=== PATIENT | female | born 1955 | race Caucasian/White ===

== ENCOUNTER 2022-09-11 18:47 | Inpatient (IN) ==
[2022-09-11 19:21] LABS: Basophils # (auto) 0.05 K/uL (0-0.2); Basophils % (auto) 0.4 %; Eosinophils # (auto) 0.19 K/uL (0-0.50); Eosinophils % (auto) 1.5 %; Hematocrit (blood only) 34.8 % (34.1-44.9); Hemoglobin 12.4 g/dl (12.0-16.0); Immature Granulocytes # (auto) 0.07 K/uL (0.00-0.02); Immature Granulocytes % (auto) 0.6 %; Lymphocytes # (auto) 2.32 K/uL (1.2-3.4); Lymphocytes % (auto) 18.5 %; Mean Corpuscular Hemoglobin 31.2 pg (25.0-34.0); Mean Corpuscular Hgb Conc 35.6 g/dL (32.0-36.0); Mean Corpuscular Volume 87.7 fL (80.0-100.0); Mean Platelet Volume 10.3 fL (9.4-12.3); Monocytes # (auto) 1.43 K/uL (0.24-0.82); Monocytes % (auto) 11.4 %; Neutrophils # (auto) 8.49 K/uL (1.4-6.5); Neutrophils % (auto) 67.6 %; Platelet Count 235 K/uL (130-400); RDW Coefficient of Variation 12.2 % (11.5-14.5); RDW Standard Deviation 39.6 fL (36.4-46.3); Red Blood Count 3.97 M/uL (3.93-5.22); White Blood Count 12.55 K/ul (4.8-10.8)
[2022-09-11 19:26] LABS: Appearance Urine Cloudy (Clear); Bacteria Urine Automated Negative (Negative); Bilirubin Urine Negative (Negative); Blood Urine Trace (Negative); Color Urine Yellow; Glucose Urine UA Negative (Negative); Ketones Urine Negative (Negative); Leukocyte Esterase Urine Negative (Negative); Nitrite Urine Negative (Negative); Protein Urine Negative (Negative); RBC Urine Automated 0-4 /hpf (0-4); Specific Gravity Urine 1.003 (1.000-1.030); Urobilinogen Urine Negative (Negative)
--- NOTE | 2022-09-11 19:50 | XRay Report ---
XR chest 1V portable CLINICAL HISTORY: SOB TECHNIQUE: Single frontal radiograph of the chest was obtained. Comparison: None available at the time of this dictation. FINDINGS: No lines and tubes are seen. The cardiomediastinal silhouette is normal. The lungs are clear. No evid ence of pleural effusion or pneumothorax. IMPRESSION: No acute abnormalities and in particular no evidence of pneumonia. ACT 112: Negative or not required by law. Electronically signed by: Demar Fuentes M.D. 09/11/2022 7:49 PM
[2022-09-11 20:17] LABS: Troponin I High Sensitivity 4.4 pg/ml (0-14)
[2022-09-11 20:31] LABS: Alanine Aminotransferase 17 U/L (7-52); Albumin Globulin Ratio 1.3 (0.9-2); Albumin Level 3.9 gm/dl (3.4-5.0); Alkaline Phosphatase 74 U/L (34-104); Anion Gap 9 (3-11); BUN Creatinine Ratio 10.3 (10-20); Bilirubin,Total 0.7 mg/dl (0.2-1.0); Blood Urea Nitrogen 6 mg/dl (6-23); Calcium 9.1 mg/dl (8.5-10.1); Carbon Dioxide 25 mmol/L (21-32); Chloride 86 mmol/L (98-107); Creatinine Clr Calc Pharmacy 90.5 ml/min; Est GFR (African American) 112.1 ml/min; Est GFR (Non-African American) 96.7 ml/min; Glucose 104 mg/dl (70-99(Fasting)); Magnesium 1.9 mg/dl (1.7-2.4); Sodium 120 mmol/L (136-145); Total Protein 6.9 gm/dl (6.0-8.3)
[2022-09-11 20:46] LABS: Influenza A virus by PCR Negative (Neg); Influenza B virus by PCR Negative (Neg); RSV by PCR Negative (Neg); SARS CoV2 RNA(COVID-19) Ceph NEGATIVE (Negative)
[2022-09-11] MEDS ORDERED: SODIUM CHLORIDE 0.9% 1000ML 1,000 ML IV ONE (21:17)
[2022-09-11] MEDS ORDERED: cefTRIAXone SODIUM 2,000 MG/70 ML BAG IV STA (21:17)
--- NOTE | 2022-09-11 21:28 | Emergency Department Note ---
History of Present Illness General Chief complaint: Cough Stated complaint: COUGH, DIARRHEA Time Seen by Provider: 09/11/22 20:53 Source: patient and family ( who is at the bedside) Mode of arrival: ambulatory Limitations: no limitations History of Present Illness This patient is a 67-year-old female who says she has had a cough and illness for about 12 days she feels short of breath she feels like there is a lot of phlegm stuck in her throat. She is able to swallow okay no vomiting she been drinking a lot of fluid her cough is dry but it has been intermittently productive with yellow phlegm. Her sister is also sick with pneumonia and is currently hospitalized in [place]. She does have a headache with coughing she does have a little bit of a laryngitis but no sore throat. She does not have chest pain except when she coughs no abdominal pain lower extremity pain or swelling. No palpitations or heart rate except for 1 episode day or so ago Home Medications Medication Instructions Recorded Confirmed Type atenolol 50 mg tablet 50 mg PO DAILY 08/20/18 11/14/18 History atenolol 50 mg tablet 50 mg PO DAILY PRN HEART FLUTTERING 08/20/18 11/14/18 History cholecalciferol (vitamin D3) 50 4,000 unit PO DAILY 08/20/18 11/14/18 History mcg (2,000 unit) tablet (Vitamin D3) docusate sodium 100 mg capsule 100 mg PO DAILY 08/20/18 11/14/18 History atorvastatin 10 mg tablet 10 mg PO DAILY 09/11/22 09/11/22 History Allergies Allergy/AdvReac Type Severity Reaction Status Date / Time Sulfa (Sulfonamide Allergy Intermediate Hives Verified 11/14/18 05:01 Antibiotics) Past Med/Surg History Medical History (Updated 09/11/22 @ 23:39 by Thor Kwong MD) Atrial tachycardia Hyperlipidemia Surgical History H/O bilateral oophorectomy H/O: hysterectomy Family History Other No significant family history Social History Smoking Status: Current some day smoker Cigarettes Per Day: 10; Hx Alcohol Use: No Hx Substance Use: No Preferred Language: Faroese 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 Beliefs That Will Affect Care: None Current Living Situation: Spouse Feels Safe at Home: Yes Assistive Devices: None Review of Systems A total of 10 systems reviewed and were otherwise negative Physical Exam Vital Signs Vital Signs - 24 hr 09/11/22 18:49 Temperature 36.6 C Temperature Source Temporal Artery Scan Pulse Rate 77 Pulse Rhythm Regular Respiratory Rate 16 Respiratory Effort / Characteristics Non-Labored Spontaneous Respiratory Depth Normal Blood Pressure 170/84 H Blood Pressure Mean 112 Pulse Oximetry 95 Oxygen Delivery Method Room Air Sepsis Recent Fever Within 48 Hours No Sepsis New/Unexplained Change in Mental Status No Sepsis Action Taken by Nursing No Action Required General: Well developed well nourished older female who is coughing frequently with a dry hacking cough in no acute distress, breathing comfortably on room air. Normal speech, slight laryngitis but speaking and swallowing without difficulty no stridor HEENT: Normal cephalic atraumatic. Pupils are equal round and reactive to light. Extraocular movements are intact. Oropharynx is pink with moist mucous membranes. No swelling of the mouth lips or tongue. Neck: Supple with a midline trachea. No meningeal signs or stiffness, no JVD or bruits. No Stridor. Chest: Clear to auscultation bilaterally. No wheezes or rhonchi. No increased work of breathing. Heart: Regular rate and rhythm without murmurs or gallops. Abdomen: Soft nontender, nondistended without rebound guarding or rigidity. Extremities: No cyanosis clubbing or edema. No calf tenderness or assymetry Spine/Back. Non tender to palpation. No CVA tenderness Skin: Good turgor without rashes. Neurologic exam: Cranial nerves two through 12 are intact. Motor and sensation are intact and symmetrical throughout. Course Administered Medications Azithromycin 500 mg/ Dextrose 255 mls @ 125 mls/hr IV 2215 ONE Stop: 09/12/22 00:17 Last Admin: 09/11/22 23:36 Dose: 125 mls/hr Documented By: KIANA Discontinued Medications Ceftriaxone Sodium (Rocephin) 2,000 mg in 70 mls @ 140 mls/hr IV NOW STA Stop: 09/11/22 21:46 Last Infusion: 09/11/22 23:28 Dose: 0 mls/hr Documented By: Admin: 09/11/22 22:41 Dose: 140 mls/hr Documented By: LAKEISHA Sodium Chloride (Nss 1000ml) 1,000 mls @ 999 mls/hr IV .Q1H1M ONE Stop: 09/11/22 22:17 Last Infusion: 09/11/22 23:28 Dose: 0 mls/hr Documented By: Admin: 09/11/22 21:51 Dose: 999 mls/hr Documented By: LAKEISHA Medical Decision Making Differential Diagnosis Pneumonia, COVID, sepsis, electrolyte or metabolic abnormality, bronchitis, cardiac disease, pulmonary disease, pneumothorax Medical Records Attestation: I reviewed the patient's medical records. Home Medications Current Medication List: was personally reviewed by me Laboratory Data Attestation: I reviewed the patient's lab results. Result diagrams: 09/11/22 19:03 09/11/22 21:57 Lab Results 09/11/22 09/11/22 09/11/22 Range/Units 19:03 19:03 19:03 WBC 12.55 H (4.8-10.8) K/ul RBC 3.97 (3.93-5.22) M/uL Hgb 12.4 (12.0-16.0) g/dl Hct 34.8 (34.1-44.9) % MCV 87.7 (80.0-100.0) fL MCH 31.2 (25.0-34.0) pg MCHC 35.6 (32.0-36.0) g/dL RDW Std Deviation 39.6 (36.4-46.3) fL RDW Coeff of Erika 12.2 (11.5-14.5) % Plt Count 235 (130-400) K/uL MPV 10.3 (9.4-12.3) fL Immature Gran % (Auto) 0.6 % Neut % (Auto) 67.6 % Lymph % (Auto) 18.5 % [place] % (Auto) 11.4 % Eos % (Auto) 1.5 % Baso % (Auto) 0.4 % Neut # (Auto) 8.49 H (1.4-6.5) K/uL Lymph # (Auto) 2.32 (1.2-3.4) K/uL [place] # (Auto) 1.43 H (0.24-0.82) K/uL Eos # (Auto) 0.19 (0-0.50) K/uL Baso # (Auto) 0.05 (0-0.2) K/uL Immature Gran # (Auto) 0.07 H (0.00-0.02) K/uL PT Cancelled INR Cancelled APTT Cancelled PTT Ratio Cancelled Sodium 120 L (136-145) mmol/L Potassium TNP Chloride 86 L (98-107) mmol/L Carbon Dioxide 25 (21-32) mmol/L Anion Gap 9 (3-11) BUN 6 (6-23) mg/dl Creatinine 0.58 L (0.6-1.2) mg/dl Est Cr Clr Drug Dosing 90.5 ml/min Est GFR ( Amer) 112.1 ml/min Est GFR (Non-Af Amer) 96.7 ml/min BUN/Creatinine Ratio 10.3 (10-20) Glucose 104 H (70-99(Fasting)) mg/dl Calcium 9.1 (8.5-10.1) mg/dl Magnesium 1.9 (1.7-2.4) mg/dl Total Bilirubin 0.7 (0.2-1.0) mg/dl AST TNP ALT 17 (7-52) U/L Alkaline Phosphatase 74 (34-104) U/L Troponin I High Sens 4.4 (0-14) pg/ml Total Protein 6.9 (6.0-8.3) gm/dl Albumin 3.9 (3.4-5.0) gm/dl Globulin 3.0 (2.5-4.0) gm/dl Albumin/Globulin Ratio 1.3 (0.9-2) Urine Color Urine Appearance (Clear) Urine pH (4.5-7.5) Ur Specific [place] (1.000-1.030) Urine Protein (Negative) Urine Glucose (UA) (Negative) Urine Ketones (Negative) Urine Blood (Negative) Urine Nitrite (Negative) Urine Bilirubin (Negative) Urine Urobilinogen (Negative) Ur Leukocyte Esterase (Negative) Urine WBC (Auto) (0-5) /hpf Urine RBC (Auto) (0-4) /hpf U Hyaline Cast (Auto) (0-5) /lpf U Epithel Cells (Auto) (0-5) /lpf Urine Bacteria (Auto) (Negative) SARS-CoV-2 (PCR) (Negative) Influenza Type A (PCR) (Neg) Influenza Type B (PCR) (Neg) RSV (RT-PCR) (Neg) 09/11/22 09/11/22 09/11/22 Range/Units 19:03 19:03 21:57 WBC (4.8-10.8) K/ul RBC (3.93-5.22) M/uL Hgb (12.0-16.0) g/dl Hct (34.1-44.9) % MCV (80.0-100.0) fL MCH (25.0-34.0) pg MCHC (32.0-36.0) g/dL RDW Std Deviation (36.4-46.3) fL RDW Coeff of Erika (11.5-14.5) % Plt Count (130-400) K/uL MPV (9.4-12.3) fL Immature Gran % (Auto) % Neut % (Auto) % Lymph % (Auto) % [place] % (Auto) % Eos % (Auto) % Baso % (Auto) % Neut # (Auto) (1.4-6.5) K/uL Lymph # (Auto) (1.2-3.4) K/uL [place] # (Auto) (0.24-0.82) K/uL Eos # (Auto) (0-0.50) K/uL Baso # (Auto) (0-0.2) K/uL Immature Gran # (Auto) (0.00-0.02) K/uL PT INR APTT PTT Ratio Sodium (136-145) mmol/L Potassium Cancelled Chloride (98-107) mmol/L Carbon Dioxide (21-32) mmol/L Anion Gap (3-11) BUN (6-23) mg/dl Creatinine (0.6-1.2) mg/dl Est Cr Clr Drug Dosing ml/min Est GFR ( Amer) ml/min Est GFR (Non-Af Amer) ml/min BUN/Creatinine Ratio (10-20) Glucose (70-99(Fasting)) mg/dl Calcium (8.5-10.1) mg/dl Magnesium (1.7-2.4) mg/dl Total Bilirubin (0.2-1.0) mg/dl AST Cancelled ALT (7-52) U/L Alkaline Phosphatase (34-104) U/L Troponin I High Sens (0-14) pg/ml Total Protein (6.0-8.3) gm/dl Albumin (3.4-5.0) gm/dl Globulin (2.5-4.0) gm/dl Albumin/Globulin Ratio (0.9-2) Urine Color Yellow Urine Appearance Cloudy A (Clear) Urine pH 6.0 (4.5-7.5) Ur Specific [place] 1.003 (1.000-1.030) Urine Protein Negative (Negative) Urine Glucose (UA) Negative (Negative) Urine Ketones Negative (Negative) Urine Blood Trace H (Negative) Urine Nitrite Negative (Negative) Urine Bilirubin Negative (Negative) Urine Urobilinogen Negative (Negative) Ur Leukocyte Esterase Negative (Negative) Urine WBC (Auto) 1-5 (0-5) /hpf Urine RBC (Auto) 0-4 (0-4) /hpf U Hyaline Cast (Auto) 1-5 (0-5) /lpf U Epithel Cells (Auto) 10-20 H (0-5) /lpf Urine Bacteria (Auto) Negative (Negative) SARS-CoV-2 (PCR) NEGATIVE (Negative) Influenza Type A (PCR) Negative (Neg) Influenza Type B (PCR) Negative (Neg) RSV (RT-PCR) Negative (Neg) 09/11/22 09/11/22 Range/Units 21:57 22:37 WBC (4.8-10.8) K/ul RBC (3.93-5.22) M/uL Hgb (12.0-16.0) g/dl Hct (34.1-44.9) % MCV (80.0-100.0) fL MCH (25.0-34.0) pg MCHC (32.0-36.0) g/dL RDW Std Deviation (36.4-46.3) fL RDW Coeff of Erika (11.5-14.5) % Plt Count (130-400) K/uL MPV (9.4-12.3) fL Immature Gran % (Auto) % Neut % (Auto) % Lymph % (Auto) % [place] % (Auto) % Eos % (Auto) % Baso % (Auto) % Neut # (Auto) (1.4-6.5) K/uL Lymph # (Auto) (1.2-3.4) K/uL [place] # (Auto) (0.24-0.82) K/uL Eos # (Auto) (0-0.50) K/uL Baso # (Auto) (0-0.2) K/uL Immature Gran # (Auto) (0.00-0.02) K/uL PT 10.8 INR 1.0 APTT 28.8 PTT Ratio 1.0 Sodium 123 L (136-145) mmol/L Potassium 4.1 Chloride 89 L (98-107) mmol/L Carbon Dioxide 25 (21-32) mmol/L Anion Gap 9 (3-11) BUN 5 L (6-23) mg/dl Creatinine 0.58 L (0.6-1.2) mg/dl Est Cr Clr Drug Dosing 90.5 ml/min Est GFR ( Amer) 112.1 ml/min Est GFR (Non-Af Amer) 96.7 ml/min BUN/Creatinine Ratio 8.6 L (10-20) Glucose 110 H (70-99(Fasting)) mg/dl Calcium 9.4 (8.5-10.1) mg/dl Magnesium (1.7-2.4) mg/dl Total Bilirubin (0.2-1.0) mg/dl AST ALT (7-52) U/L Alkaline Phosphatase (34-104) U/L Troponin I High Sens (0-14) pg/ml Total Protein (6.0-8.3) gm/dl Albumin (3.4-5.0) gm/dl Globulin (2.5-4.0) gm/dl Albumin/Globulin Ratio (0.9-2) Urine Color Urine Appearance (Clear) Urine pH (4.5-7.5) Ur Specific [place] (1.000-1.030) Urine Protein (Negative) Urine Glucose (UA) (Negative) Urine Ketones (Negative) Urine Blood (Negative) Urine Nitrite (Negative) Urine Bilirubin (Negative) Urine Urobilinogen (Negative) Ur Leukocyte Esterase (Negative) Urine WBC (Auto) (0-5) /hpf Urine RBC (Auto) (0-4) /hpf U Hyaline Cast (Auto) (0-5) /lpf U Epithel Cells (Auto) (0-5) /lpf Urine Bacteria (Auto) (Negative) SARS-CoV-2 (PCR) (Negative) Influenza Type A (PCR) (Neg) Influenza Type B (PCR) (Neg) RSV (RT-PCR) (Neg) Imaging Data Attestation: I personally reviewed and interpreted this imaging study as follows: My Impression: Chest x-raythere is an infiltrate in the left base consistent with pneumonia Radiologist's Impression: Chest X-Ray 09/11/22 18:53 XR chest 1V portable CLINICAL HISTORY: SOB TECHNIQUE: Single frontal radiograph of the chest was obtained. Comparison: None available at the time of this dictation. FINDINGS: No lines and tubes are seen. The cardiomediastinal silhouette is normal. The lungs are clear. No evidence of pleural effusion or pneumothorax. IMPRESSION: No acute abnormalities and in particular no evidence of pneumonia. ACT 112: Negative or not required by law. Electronically signed by: Demar Fuentes M.D. 09/11/2022 7:49 PM ECG Data Attestation: I personally reviewed and interpreted this ECG as follows: Indication: + SOB/dyspnea Rate (beats per minute): 65 Rhythm: + normal sinus ECG Intervals/blocks: + Incomplete right bundle branch block ECG [place]: + Normal ECG ST segments: + Normal ST segments ECG Findings: no PACs or no PVCs Comparison ECG Date: no prior available MDM Narrative This patient is a 67-year-old female has been coughing and sick for about 12 days. She does have a history of heavy smoking since age 16 although denies any lung issues. She is not hypoxemic but is very symptomatic. EKG is unremarkable. she has no suggest cardiac disease causing her symptoms. chest x- ray was read as negative by the radiologist however, I do think there is a infiltrate in the left base which goes along with her symptoms white count is mildly elevated as well. I did give her Rocephin 2 g IV. My biggest concern however she is hyponatremic with a sodium of 120 she will likely need to be fluid restricted I did give her an IV 1 L normal saline bolus. And I have consulted Dr. May to see her in ER for further treatment and evaluation. I did talk to the patient and her who is at the bedside at length and they agree with the plan Impression & Plan Hyponatremia, Pneumonia, Cough, Lab test negative for COVID-19 virus Discharge Plan Visit Data Chief Complaint: Cough Stated Complaint: COUGH, DIARRHEA ED Provider: Thor Kwong Discharge Problem: Hyponatremia, Pneumonia, Cough, Lab test negative for COVID-19 virus Forms Stand Alone Forms: My [facility] Prescriptions Prescriptions: No Action docusate sodium 100 mg Capsule 100 mg PO DAILY atenolol 50 mg Tablet 50 mg PO DAILY atenolol 50 mg Tablet 50 mg PO DAILY PRN (Reason: HEART FLUTTERING) cholecalciferol (vitamin D3) [Vitamin D3] 2,000 unit Tablet 4,000 unit PO DAILY atorvastatin 10 mg tablet 10 mg PO DAILY Referrals Referrals: Srinivasa Germain MD [Primary Care Provider] -
[2022-09-11] MEDS ORDERED: AZITHROMYCIN 500 MG in DEXTROSE 5% 250 ML IV ONE (22:15)
[2022-09-11 22:42] LABS: BUN Creatinine Ratio 8.6 (10-20); Calcium 9.4 mg/dl (8.5-10.1); Creatinine Clr Calc Pharmacy 90.5 ml/min; Est GFR (African American) 112.1 ml/min; Est GFR (Non-African American) 96.7 ml/min; Potassium 4.1 mmol/L (3.5-5.1)
[2022-09-11 23:12] LABS: Partial Thromboplastin Time 28.8 Seconds (21.0-31.0); Prothrombin Time 10.8 Seconds (9.0-12.0)
--- NOTE | 2022-09-11 23:36 | History and Physical Report ---
DATE OF ADMISSION: 09/11/2022 CHIEF COMPLAINT: Persistent cough. HISTORY OF PRESENT ILLNESS: A 67-year-old female with past medical history significant for hyperlipidemia, hypertension, paroxysmal atrial tachycardia, vitamin D deficiency, chronic back pain, history of ongoing tobacco abuse, smokes one-half pack a day, comes with a persistent cough. She says this has been going on for last 10-12 days. She is coughing a lot, disturbing her sleep and sometimes gasping for breath, which prompted her to come to the ER. Denies any fever or chills. Appetite is down, but she is drinking fluids okay..Having also four to five episodes of diarrhea daily. Denies any blood in stools or black stools. Normal bladder movements. No burning micturition. No abdominal pain. No swelling in the legs, no rash. Chest pain from coughing. She is feeling short of breath when she is coughing a lot and sore throat from cough and some upper back pain from the cough. Denies any headache. No blurred visions. Some mild runny nose. Has complaints of some mild right earache. Currently, resting comfortably and hemodynamically stable. ALLERGIES: SULFA ANTIBIOTICS. PAST MEDICAL HISTORY: As mentioned above. PAST SURGICAL HISTORY: Right breast biopsy, colonoscopy, dental surgery, EGD, EGD with endoscopic ultrasound, ligation of oviduct, removal of right heel spur, total abdominal hysterectomy with removal of tubes. MEDICATIONS: The patient is on atenolol 50 mg p.o. daily p.r.n. for palpitations, atorvastatin 10 mg p.o. daily, vitamin D 4000 units p.o. daily, Colace 100 mg p.o. daily p.r.n. constipation. FAMILY HISTORY: Significant for brother has skin cancer. Sister has ovarian cancer. Mother has CAD. Paternal grandmother has stroke. SOCIAL HISTORY: . Smokes half pack a day. Alcohol, rarely. No drug use. REVIEW OF SYSTEMS: As per HPI. Rest of the review of systems is negative. PHYSICAL EXAMINATION: GENERAL: The patient is of moderate build, not in acute distress. VITAL SIGNS: Temperature 36.6, pulse 77, respiratory rate 16, blood pressure 170/84, oxygen 95% on room air. HEENT: Pupils equal, round and reactive to light. Oral mucosa moist. Right ear exam, the right ear has some wax seen, but no erythema or drainage seen. NECK: No JVD or neck masses. CARDIOVASCULAR: S1 and S2 heard. Regular rate and rhythm. No murmur, no gallop. RESPIRATORY SYSTEM: Normal AP diameter. No accessory muscle use. No wheezing, no crackles. ABDOMEN: Soft, bowel sounds present, nontender, no distention. CENTRAL NERVOUS SYSTEM: Alert and oriented. Speech is clear. No facial droop. Insight is okay. Obeys simple commands. Moves extremities. EXTREMITIES: No edema, no erythema. LABORATORY DATA: WBC 12.5, hemoglobin 12.4, hematocrit 34.8, platelets 235. Sodium 120, chloride 86, CO2 25, BUN 6, creatinine 0.5, serum glucose 104, calcium 9.1, magnesium 1.9, total bilirubin 0.7, ALT 17, alkaline phosphatase 74. Troponin I high sensitivity 4.4. Urinalysis negative. SARS-CoV-2 PCR negative. Influenza A and B PCR negative. RSV PCR negative. IMAGING DATA: Chest x-ray, no acute findings. EKG: Normal sinus rhythm, rate of 65, incomplete right bundle-branch block, QTc 447. ASSESSMENT AND PLAN: This is a 67-year-old female who presents with persistent cough and found to have hyponatremia. 1. Persistent cough. Possibly bronchitis. The patient has ongoing tobacco abuse. No obvious wheezing. Possible upper respiratory infection. We will get CT chest to get a better picture. ER gave her Rocephin. Will continue with Rocephin and azithromycin, nebs around the clock, cough syrup. Closely monitor in the [employer]. Monitor the response. 2. Hyponatremia. The patient had similar presentation in 2018. We will check repeat BMP. For now, we will place her on normal saline 50 mL per hour. Monitor. We will get urine osmolality, serum osmolality, urine sodium levels. Consult nephrology in the a.m. and follow BMP q. 6 hours. 3. Tobacco abuse: Needs counseling. 4. Hypertension: Continue atenolol. 5. History of paroxysmal atrial tachycardia. On atenolol p.r.n. 6. Hyperlipidemia, on statin. 7. Vitamin D deficiency, on supplements. 8. diarrhea. We will check stool for C. diff and stool cultures. 9. Deep venous thrombosis prophylaxis: Lovenox. DISPOSITION: Closely monitor in the [employer] tele. PT/OT prior to discharge. Social service to help with discharge planning. Job ID: [id number] MTDD
[2022-09-12] MEDS: guaiFENesin/CODEINE 100MG/10MG 5ML UDC PO PRN (00:28)
[2022-09-12] MEDS ORDERED: SODIUM CHLORIDE 0.9% 1000ML 1,000 ML IV SCH (00:32)
[2022-09-12] MEDS ORDERED: ACETAMINOPHEN 325 MG TAB PO PRN (00:32)
[2022-09-12] MEDS ORDERED: ATENOLOL 50 MG TABLET PO PRN (00:32)
[2022-09-12] MEDS ORDERED: NITROGLYCERIN SL 0.4 MG/TAB TAB SL PRN (00:32)
[2022-09-12] MEDS ORDERED: XOPENEX/ATROVENT 1.25mg/0.5MG NEB COMBO NEB SCH (01:00)
[2022-09-12] MEDS ORDERED: INFLUENZA VACCINE HIGH DOSE PF 65+ 0.7 ML SYR IM ONE (01:14)
[2022-09-12] MEDS ORDERED: PNEUMOCOCCAL POLYSACCHARIDES 25 MCG/0.5 ML VIAL/SYR IM ONE (01:14)
[2022-09-12] MEDS: LEVALBUTEROL 1.25MG/0.5ML NEB INH SCH ×4 (03:07→19:17)
[2022-09-12] MEDS: IPRATROPIUM BROMIDE NEB SOLN 0.02% 2.5 ML VIAL INH SCH ×4 (03:07→19:17)
[2022-09-12] MEDS ORDERED: CHLORASEPTIC 1.4% SOLN 180 ML BTL MT PRN (04:26)
[2022-09-12 07:01] LABS: Basophils # (auto) 0.03 K/uL (0-0.2); Basophils % (auto) 0.3 %; Eosinophils # (auto) 0.09 K/uL (0-0.50); Eosinophils % (auto) 0.9 %; Hematocrit (blood only) 34.7 % (34.1-44.9); Hemoglobin 12.3 g/dl (12.0-16.0); Immature Granulocytes # (auto) 0.06 K/uL (0.00-0.02); Immature Granulocytes % (auto) 0.6 %; Lymphocytes # (auto) 1.43 K/uL (1.2-3.4); Lymphocytes % (auto) 14.4 %; Mean Corpuscular Hemoglobin 30.9 pg (25.0-34.0); Mean Corpuscular Hgb Conc 35.4 g/dL (32.0-36.0); Mean Corpuscular Volume 87.2 fL (80.0-100.0); Monocytes % (auto) 12.1 %; Neutrophils # (auto) 7.11 K/uL (1.4-6.5); Neutrophils % (auto) 71.7 %; Platelet Count 255 K/uL (130-400); RDW Coefficient of Variation 12.3 % (11.5-14.5); RDW Standard Deviation 39.5 fL (36.4-46.3); Red Blood Count 3.98 M/uL (3.93-5.22); White Blood Count 9.92 K/ul (4.8-10.8)
[2022-09-12 07:36] LABS: BUN Creatinine Ratio 7.1 (10-20); Calcium 8.7 mg/dl (8.5-10.1); Creatinine Clr Calc Pharmacy 93.8 ml/min; Est GFR (African American) 113.4 ml/min; Est GFR (Non-African American) 97.8 ml/min; Magnesium 1.9 mg/dl (1.7-2.4); Potassium 3.7 mmol/L (3.5-5.1)
[2022-09-12 07:40] LABS: Partial Thromboplastin Ratio 1.1; Partial Thromboplastin Time 31.2 Seconds (21.0-31.0); Prothrombin Time 10.6 Seconds (9.0-12.0)
--- NOTE | 2022-09-12 08:47 | Communication Note ---
Date of Service: September 12, 2022 Started on d5w@100ml/hr as sodium corrected to 130 in am labs. Close monitor. Thanks
--- NOTE | 2022-09-12 09:03 | Nephrology Consultation ---
Date of Consultation September 12, 2022 Assessment & Plan (1) Hyponatremia: presenting sNa 120 at 1900 yesterday, up to 130 at 0600. urine studies c/w polydipsia. she has overcorrected -no fluid limit for now -cont D5W -recheck bmp q6h > goal is 126 this evening 1900 -maintain eukalemia > gave 40 mEq po K x 1 -f/u pending CT chest History of Present Illness Reason for Consultation: hyponatremia Requesting Physician: Dr May Attending Physician: Armani Andre MD History of Present Illness 67 y/o F whom I'm asked to see for hyponatremia was admitted yesterday late w/ persistent cough likely bronchitis and hyponatremia, w/ presenting sodium at 1900 yesterday of 120. PMH includes active tobacco abuse (1.5 PPD), HTN, HL, paroxysmal atrial tach, chronic back pain. admitted here in 2017 w/ sNa 124, cough/bronchitis, n/dry heaves/ LLQ pain; no OP hyponatremia. Had also been using nsaids heavily at that time to manage BELCHER. She presented w/ 10-12 days of paroxysmal cough making her dyspneic not infrequently and productive of copious oleary sputum (no blood); also w/ 4-5 loose bm/day. no f/c, some musculoskeletal pain w/ coughing, no abd pain or n/v. some decreased food intake but maintained fluid intake. no new/worrisome voiding sx. denies nsaid use. She was started on NS at 50 mL /hr w/improvement to 123 by 2200. This am sNa is 130, in response to which pt started on D5W at 100 ml/hr. Allergies Allergy/AdvReac Type Severity Reaction Status Date / Time Sulfa (Sulfonamide Allergy Intermediate Hives Verified 09/12/22 00:26 Antibiotics) Home Medications Medication Instructions Recorded Confirmed Type atenolol 50 mg tablet 50 mg PO DAILY PRN HEART FLUTTERING 08/20/18 09/12/22 History atenolol 50 mg tablet 50 mg PO QAM 08/20/18 09/12/22 History cholecalciferol (vitamin D3) 50 4,000 unit PO QAM 08/20/18 09/12/22 History mcg (2,000 unit) tablet (Vitamin D3) atorvastatin 10 mg tablet 10 mg PO QAM 09/11/22 09/12/22 History Patient History Medical History Atrial tachycardia Hyperlipidemia Hypertension Tobacco abuse Surgical History H/O bilateral oophorectomy H/O: hysterectomy Family History Other No significant family history Social History Smoking Status: Current every day smoker Cigarettes Per Day: 10; Hx Alcohol Use: No Hx Substance Use: No Preferred Language: Swazi Communication Ability: Effective Service Worker Helper Required: No Beliefs That Will Affect Care: None Current Living Situation: Spouse Feels Safe at Home: Yes Safety Concerns: Feels Safe At This Time Assistive Devices: Denture - Upper, Denture - Lower and Glasses Review of Systems Review of Systems: All systems reviewed & are unremarkable except as noted in HPI & below Physical Exam Constitutional: well developed and well nourished Eyes: EOM intact bilaterally ENMT: Ears: no external ear abnormality Nose: no external nose abnormality Mouth: + dry oral mucous membranes Neck: no nuchal rigidity Respiratory: normal respiratory effort, + respiratory distress (transient w/ cough spell) and + cough (thick productive) Auscultation: + diminished lung sounds Cardiovascular: Rate/Rhythm: regular rate and regular rhythm Extremities: no edema Gastrointestinal (Abdomen): Inspection/Auscultation: normal bowel sounds Percussion/Palpation: abdomen soft; abdomen nontender Musculoskeletal: Extremities: strength 5/5 throughout Skin: no rashes, warm and dry Neurologic: singh, fluent speech, no tremor Psychiatric: Orientation: oriented x 3 Speech: normal rate/rhythm/volume of speech Results & Data ([facility]) Vital Signs (Past 12 Hours) Vital Signs Temp Pulse Pulse Resp BP Pulse Ox Pulse Ox 09/12/22 07:51 09/12/22 07:50 37.3 C 71 20 136/66 100 09/12/22 06:03 68 18 133/64 96 09/12/22 01:42 96 09/12/22 01:42 59 L 20 138/66 97 09/12/22 00:05 70 98 09/12/22 00:05 22 98 09/12/22 00:05 70 22 138/66 98 O2 Del Method O2 Del Method 09/12/22 07:51 Room Air 09/12/22 07:50 Room Air 09/12/22 06:03 Room Air 09/12/22 01:42 Room Air 09/12/22 01:42 Room Air 09/12/22 00:05 Room Air 09/12/22 00:05 Room Air 09/12/22 00:05 Room Air Laboratory Results 09/12/22 06:05 09/12/22 06:05 uOsm 75 Juanito 15 sOsm 247 Diagnostic Findings CXR no acute process
[2022-09-12] MEDS: ATENOLOL 50 MG TABLET PO SCH (09:16)
[2022-09-12] MEDS: ENOXAPARIN INJ 40 MG/0.4 ML SYR SQ SCH (09:17)
[2022-09-12] MEDS: CHOLECALCIFEROL 1,000 UNITS 25 MCG TAB PO SCH (09:17)
--- NOTE | 2022-09-12 09:25 | CT Scan Report ---
CT SCAN OF THE CHEST WITHOUT IV CONTRAST CLINICAL HISTORY: Cough and dyspnea COMPARISON STUDY: Chest x-ray dated 09/11/2022. TECHNIQUE: CT scan of the thorax was performed from the thoracic inlet to the upper abdomen. Images are reviewed in the axial, sagittal, and coronal planes. IV contrast was not administered for this ex amination as per the referring clinician. A dose lowering technique was utilized adhering to the tammi Marvin. CT DOSE: 201.22 mGy.cm FINDINGS: Thyroid: Imaged portions of the thyroid gland are normal in size and attenuation. Thoracic aorta: There is atherosclerotic calcification of the thoracic aorta, which is normal in fidel clarisa and demonstrates standard 3-vessel arch anatomy. Heart: The heart is top normal in size and without pericardial effusion. There are coronary artery ca lcifications. Lungs and pleural spaces: Emphysematous change is observed. The trachea and central airways are clear . No pleural effusion is identified. There is airspace consolidation in the lingula. Mild patchy cons olidation is also seen in the upper lobes and the left lower lobe. A 13 mm opacity is seen in the lef t upper lobe on image #78. A low suspicion 6 mm pleural-based nodule in the right middle lobe along t he minor fissure is seen on image 66. Mediastinum: Prominent mediastinal lymph nodes measure up to 10 mm in short axis. Alfreda: Not well assessed without IV contrast. Axillae: There is no axillary lymphadenopathy. Upper abdomen: There is a small hiatal hernia. Partially visualized upper abdominal viscera is otherw ise within normal limits. Skeletal structures: The skeletal structures are osteopenic. Degenerative change is noted in the thor acic spine. No lytic or blastic bony lesions are seen. IMPRESSION: 1. There is airspace consolidation in the lingula, as well as mild patchy airspace opacities in the u pper lobes and left lower lobe. The appearance is typical for pneumonia and clinical correlation will be required. 2. Emphysema. 3. A 13 mm groundglass opacity in the left upper lobe may be inflammatory. A 3-4 month follow-up ches t CT is recommended to document complete resolution and to exclude underlying pulmonary lesion. 4. Prominent mediastinal lymph nodes are likely reactive. 5. Additional findings as above. ACT 112: Positive. There are findings on this exam that require communication between the performing entity and the patient following Patient Test Result Information Act ([place] Act 112) guidelines. Electronically signed by: Hugo Harry M.D. 09/12/2022 9:23 AM
[2022-09-12] MEDS: DEXTROSE 5% 1,000 ML IV SCH ×2 (10:25→17:43)
[2022-09-12 11:09] LABS: BUN Creatinine Ratio 7.1 (10-20); Calcium 9.4 mg/dl (8.5-10.1); Creatinine Clr Calc Pharmacy 93.8 ml/min; Est GFR (African American) 113.4 ml/min; Est GFR (Non-African American) 97.8 ml/min; Potassium 4.1 mmol/L (3.5-5.1)
[2022-09-12] MEDS ORDERED: POTASSIUM CHLORIDE CRTAB 20 MEQ TABCR PO ONE (11:53)
--- NOTE | 2022-09-12 14:27 | Hospitalist Progress Note ---
Date of Service September 12, 2022 Assessment & Plan (1) Pneumonia: (2) Cough: Plan: Presented on admission with persistent cough CT chest showed airspace consolidation in the lingula, as well as mild patchy airspace opacities in the upper lobes and left lower lobe. A 13 mm groundglass opacity in the left upper lobe may be inflammatory. On admission she was tested negative for COVID-19, influenza type a and B and RSV. Currently on IV antibiotic with ceftriaxone and azithromycin Blood cx pending Continue nebulizer treatment and guaifenesin We will add hypertonic saline incentive spirometry and flutter valve Patient will need follow-up CT chest in 3 to 4 months for resolution and to exclude underlying pulmonary lesion Continue monitor closely . Hyponatremia. Possible related to pulm oral intake due to acute illness Sodium on admission 120, Most recent sodium level 131 today Nephrology on baord Sodium was overcorrected, Now on D5 water We will check BMP tonight. Goals for sodium about 126 Tobacco abuse Counseling on smoking cessation Hypertension BP st[place]ale Continue atenolol. History of paroxysmal atrial tachycardia Continue atenolol p.r.n. Hyperlipidemia Continue statin. Deep venous thrombosis prophylaxis: On Lovenox. CODE STATUS FULL CODE Admission and Anticipated Discharge Date Admission Date: September 11, 2022 Subjective Patient was seen and evaluated for follow-up persistent cough Sitting in bed with no acute distress with at bedside Patient said that she continues to cough alot She states sometimes she is able to bring the phlegm up other times none She said the nebulizer treatment helps Denies any chest pain, palpitation, dizziness, fever Review of Systems Review of Systems: All systems reviewed & are unremarkable except as noted in Subjective Physical Exam Physical Exam: General- No acute distress Head- atraumatic Eyes- PERRL, EOMI, ENT- oropharynx clear Neck- supple, no JVD Lungs- No wheezing Heart- regular rhythm; no murmur Abdomen- normal bowel sounds, soft, nontender Extremities- no calf tenderness Neuro- alert, oriented x 3; PERRL, EOMI; no facial palsy; no dysarthria Skin- warm & dry Results & Data Results & Data ([facility]) Vital Signs (Past 12 Hours) Vital Signs Temp Pulse Resp BP Pulse Ox O2 Del Method 09/12/22 12:53 60 20 133/69 98 Room Air 09/12/22 11:21 63 20 138/61 96 Room Air 09/12/22 13:04 63 20 96 Room Air 09/12/22 10:00 71 20 112/66 96 Room Air 09/12/22 07:51 Room Air 09/12/22 07:50 37.3 C 71 20 136/66 100 Room Air 09/12/22 06:03 68 18 133/64 96 Room Air (1) Pneumonia Laterality: left Lung location: lower lobe of lung Pneumonia type: due to unspecified organism Qualified Code(s): J18.9 - Pneumonia, unspecified organism (2) Cough Cough type: subacute Qualified Code(s): R05.2 - Subacute cough
[2022-09-12 17:41] LABS: BUN Creatinine Ratio 13.6 (10-20); Calcium 8.8 mg/dl (8.5-10.1); Creatinine Clr Calc Pharmacy 79.6 ml/min; Est GFR (African American) 107.4 ml/min; Est GFR (Non-African American) 92.7 ml/min; Potassium 3.9 mmol/L (3.5-5.1)
[2022-09-12] MEDS: SODIUM CHLOR 7% 4 ML NEB NEB SCH (19:20)
[2022-09-12] MEDS: ATORVASTATIN 10 MG TAB PO SCH (20:47)
[2022-09-12] MEDS: AZITHROMYCIN 250 MG TAB PO SCH (21:40)
[2022-09-12] MEDS: cefTRIAXone SODIUM 2,000 MG in DEXTROSE 5% 50 ML IV SCH (21:40)
--- NOTE | 2022-09-12 21:45 | Electrocardiogram Report ---
Test Reason : Blood Pressure : / mmHG Vent. Rate : 065 BPM Atrial Rate : 065 BPM P-R Int : 180 ms QRS Dur : 094 ms QT Int : 430 ms P-R-T Axes : 063 018 066 degrees QTc Int : 447 ms Normal sinus rhythm Incomplete right bundle branch block Borderline ECG No previous ECGs available Confirmed by Nomr Olsen ([id number]) on 09/12/2022 9:44:33 PM Referred By: REFERRED SELF Confirmed By:Norm Olsen
[2022-09-13 00:19] LABS: Calcium 8.2 mg/dl (8.5-10.1); Creatinine Clr Calc Pharmacy 71.9 ml/min; Est GFR (African American) 100.2 ml/min; Est GFR (Non-African American) 86.4 ml/min; Potassium 3.5 mmol/L (3.5-5.1)
[2022-09-13] MEDS: LEVALBUTEROL 1.25MG/0.5ML NEB INH SCH ×5 (00:50→19:57)
[2022-09-13] MEDS: IPRATROPIUM BROMIDE NEB SOLN 0.02% 2.5 ML VIAL INH SCH ×5 (00:50→19:57)
[2022-09-13] MEDS: DEXTROSE 5% 1,000 ML IV SCH ×2 (01:05→08:46)
[2022-09-13] MEDS: SODIUM CHLOR 7% 4 ML NEB NEB SCH (07:21)
[2022-09-13] MEDS: ENOXAPARIN INJ 40 MG/0.4 ML SYR SQ SCH (07:59)
[2022-09-13] MEDS: ATENOLOL 50 MG TABLET PO SCH (08:00)
[2022-09-13] MEDS: CHOLECALCIFEROL 1,000 UNITS 25 MCG TAB PO SCH (08:00)
--- NOTE | 2022-09-13 09:21 | Hospitalist Progress Note ---
Date of Service September 13, 2022 Assessment & Plan (1) Pneumonia: (2) Cough: Plan: Presented on admission with persistent cough CT chest showed airspace consolidation in the lingula, as well as mild patchy airspace opacities in the upper lobes and left lower lobe. A 13 mm groundglass opacity in the left upper lobe may be inflammatory. On admission she was tested negative for COVID-19, influenza type A and B and RSV. Currently on IV antibiotic with ceftriaxone and azithromycin Blood cx - negative in 24 hours Continue nebulizer treatment and guaifenesin Incentive spirometry and flutter valve Patient will need follow-up CT chest in 3 to 4 months for resolution and to exclude underlying pulmonary lesion Continue monitor closely . Hyponatremia. Possible related to pulm/ oral intake due to acute illness Sodium on admission 120, ->sodium level 131 Sodium was overcorrected, Now on D5 water Current Na 128 Nephrology following closely, will stop D5 now Tobacco abuse Counseling on smoking cessation Hypertension BP stable Continue atenolol. History of paroxysmal atrial tachycardia Continue atenolol p.r.n. Hyperlipidemia Continue statin. DVT prophylaxis:On Lovenox. CODE : FULL CODE Admission and Anticipated Discharge Date Admission Date: September 11, 2022 Subjective Patient was seen and evaluated for follow-up persistent cough Sitting in bed with no acute distress with at bedside Patient said that she continues to cough a lot but feels improved She said the nebulizer treatment helps Denies any chest pain, palpitation, dizziness, fever Review of Systems Review of Systems: All systems reviewed & are unremarkable except as noted in Subjective Physical Exam Physical Exam: General- No acute distress Head- atraumatic Eyes- PERRL, EOMI, ENT- oropharynx clear Neck- supple, no JVD Lungs- No wheezing, fairly CTAB, no significant rhonchi or crackles noted (exam done shortly after resp. treatment) Heart- regular rhythm; no murmur Abdomen- normal bowel sounds, soft, nontender Extremities- no calf tenderness,moves extremities Neuro- alert, oriented x 3; PERRL, EOMI; no facial palsy; no dysarthria, ambulates w/o difficulty Skin- warm & dry Results & Data Results & Data ([facility]) Vital Signs (Past 12 Hours) Vital Signs Temp Pulse Pulse Pulse Resp BP Pulse Ox 09/13/22 08:03 36 C L 69 15 140/80 95 09/13/22 03:06 37.1 C 62 16 118/75 94 09/13/22 00:51 68 18 94 09/12/22 22:16 73 09/12/22 23:25 36.8 C 66 20 113/69 93 09/12/22 22:37 O2 Del Method 09/13/22 08:03 Room Air 09/13/22 03:06 Room Air 09/13/22 00:51 Room Air 09/12/22 22:16 09/12/22 23:25 Room Air 09/12/22 22:37 Room Air Laboratory Results 09/12/22 09/12/22 09/12/22 Range/Units 23:21 17:00 10:40 Sodium 127 L 127 L 131 L (136-145) mmol/L Potassium 3.5 3.9 4.1 (3.5-5.1) mmol/L Chloride 96 L 95 L 97 L (98-107) mmol/L Carbon Dioxide 26 26 26 (21-32) mmol/L Anion Gap 5 6 8 (3-11) BUN 8 9 4 L (6-23) mg/dl Creatinine 0.73 0.66 0.56 L (0.6-1.2) mg/dl Est Cr Clr Drug Dosing 71.9 79.6 93.8 ml/min Est GFR ( Amer) 100.2 107.4 113.4 ml/min Est GFR (Non-Af Amer) 86.4 92.7 97.8 ml/min BUN/Creatinine Ratio 11.0 13.6 7.1 L (10-20) Glucose 108 H 100 H 98 (70-99(Fasting)) mg/dl Calcium 8.2 L 8.8 9.4 (8.5-10.1) mg/dl Medications Administered Current Inpatient Medications Acetaminophen (Acetaminophen 325 Mg Tab) 650 mg PO Q4H PRN PRN Reason: Pain or Fever Stop: 10/12/22 00:31 Atenolol (Atenolol 50 Mg Tablet) 50 mg PO DAILY PRN PRN Reason: Palpitations Stop: 10/12/22 00:31 Atenolol (Atenolol 50 Mg Tablet) 50 mg PO DAILY [facility] Stop: 10/12/22 08:59 Last Admin: 09/13/22 08:00 Dose: 50 mg Atorvastatin Calcium (Atorvastatin 10 Mg Tab) 10 mg PO HS [facility] Stop: 10/12/22 20:59 Last Admin: 09/12/22 20:47 Dose: 10 mg Azithromycin (Azithromycin 250 Mg Tab) 250 mg PO DAILY@2200 [facility] Stop: 09/19/22 21:59 Last Admin: 09/12/22 21:40 Dose: 250 mg Enoxaparin Sodium (Enoxaparin Inj 40 Mg/0.4 Ml Syr) 40 mg SQ Q24H [facility] Stop: 10/12/22 08:59 Last Admin: 09/13/22 07:59 Dose: Not Given Guaifenesin (Guaifenesin 600 Mg Tabcr) 600 mg PO Q12 [facility] Stop: 10/13/22 09:14 Guaifenesin/Codeine Phosphate (Guaifenesin/Codeine 100mg/10mg 5ml Udc) 5 ml PO Q6H PRN PRN Reason: Cough Stop: 10/11/22 22:10 Last Admin: 09/12/22 00:28 Dose: 5 ml Ceftriaxone Sodium 2,000 mg/ (Dextrose) 70 mls @ 100 mls/hr IV Q24H [facility]; Protocol Stop: 09/19/22 20:59 Last Infusion: 09/12/22 22:25 Dose: Infused Dextrose (D5w) 1,000 mls @ 125 mls/hr IV .Q8H [facility] Stop: 10/12/22 08:14 Last Admin: 09/13/22 08:46 Dose: 125 mls/hr Ipratropium [place] (Ipratropium [place] Neb Soln 0.02% 2.5 Ml Vial) 0.5 mg INH Q6R [facility] Stop: 10/12/22 00:59 Last Admin: 09/13/22 07:21 Dose: Not Given Levalbuterol HCl (Levalbuterol 1.25mg/0.5ml Neb) 1.25 mg INH Q6R [facility] Stop: 10/12/22 00:59 Last Admin: 09/13/22 07:21 Dose: Not Given Nitroglycerin (Nitroglycerin Sl 0.4 Mg/Tab Tab) 0.4 mg SL UD PRN PRN Reason: Chest Pain Stop: 10/12/22 00:31 Phenol (Chloraseptic 1.4% Soln 180 Ml Btl) 1 sprays MT Q4H PRN PRN Reason: Sore Throat Stop: 10/12/22 04:25 Last Admin: 09/12/22 05:14 Dose: 1 sprays Sodium Chloride (Sodium Chlor 7% 4 Ml Neb) 4 ml NEB BIDR [facility] Stop: 09/14/22 18:59 Last Admin: 09/13/22 07:21 Dose: Not Given Vitamin D (Cholecalciferol 1,000 Units 25 Mcg Tab) 4,000 units PO DAILY [facility] Stop: 10/12/22 08:59 Last Admin: 09/13/22 08:00 Dose: 4,000 units (1) Cough Cough type: subacute Qualified Code(s): R05.2 - Subacute cough (2) Pneumonia Laterality: left Lung location: lower lobe of lung Pneumonia type: due to unspecified organism Qualified Code(s): J18.9 - Pneumonia, unspecified organism
[2022-09-13] MEDS: guaiFENesin 600 MG TABCR PO SCH ×2 (10:18→20:58)
[2022-09-13 10:20] LABS: BUN Creatinine Ratio 6.5 (10-20); Calcium 8.9 mg/dl (8.5-10.1); Creatinine Clr Calc Pharmacy 84.7 ml/min; Est GFR (African American) 109.7 ml/min; Est GFR (Non-African American) 94.6 ml/min; Phosphorus 3.7 mg/dl (2.5-4.9)
[2022-09-13] MEDS: guaiFENesin/CODEINE 100MG/10MG 5ML UDC PO PRN ×2 (13:28→21:00)
--- NOTE | 2022-09-13 15:28 | Nephrology Progress Note ---
Date of Service September 13, 2022 Assessment & Plan (1) Hyponatremia: Plan: presenting sNa 120 at 1900 09/11, up to 130 at 0600 on 09/13. urine studies c/w polydipsia; though structural lung disease both chronic and acute likely has a role. she initially overcorrected and was started on D5W. today sCreat 128, appropriate. -no fluid limit for now -stopped D5W -recheck bmp in AM > goal is sNa 134 -maintain eukalemia > no K supplements needed today Admission and Anticipated Discharge Date Admission Date: September 11, 2022 Subjective still w/ productive cough; no sore throat; feeling better; taking po Review of Systems Review of Systems: All systems reviewed & are unremarkable except as noted in Subjective Physical Exam Constitutional: well developed and well nourished Eyes: EOM intact bilaterally ENMT: Ears: no external ear abnormality Nose: no external nose abnormality Mouth: + dry oral mucous membranes Neck: no nuchal rigidity Respiratory: normal respiratory effort and + cough (thick productive); no respiratory distress Auscultation: + diminished lung sounds Cardiovascular: Rate/Rhythm: regular rate and regular rhythm Extremities: no edema Gastrointestinal (Abdomen): Inspection/Auscultation: normal bowel sounds Percussion/Palpation: abdomen soft; abdomen nontender Musculoskeletal: Extremities: strength 5/5 throughout Skin: no rashes, warm and dry Neurologic: singh, fluent speech, no tremor Psychiatric: Orientation: oriented x 3 Speech: normal rate/rhythm/volume of speech Results & Data ([facility]) Vital Signs (Past 12 Hours) Vital Signs Temp Pulse Pulse Resp BP Pulse Ox O2 Del Method 09/13/22 13:44 65 16 97 Room Air 09/13/22 10:35 66 16 98 Room Air 09/13/22 10:31 36.5 C 60 16 134/80 95 Room Air 09/13/22 07:00 65 09/13/22 09:56 Room Air 09/13/22 08:03 36 C L 69 15 140/80 95 Room Air Laboratory Results 09/12/22 06:05 09/13/22 09:25
[2022-09-13] MEDS: cefTRIAXone SODIUM 2,000 MG in DEXTROSE 5% 50 ML IV SCH (20:58)
[2022-09-13] MEDS: ATORVASTATIN 10 MG TAB PO SCH (21:00)
[2022-09-13] MEDS: AZITHROMYCIN 250 MG TAB PO SCH (21:00)
[2022-09-14] MEDS: LEVALBUTEROL 1.25MG/0.5ML NEB INH SCH ×3 (00:59→13:03)
[2022-09-14] MEDS: IPRATROPIUM BROMIDE NEB SOLN 0.02% 2.5 ML VIAL INH SCH ×3 (00:59→13:03)
[2022-09-14] MEDS: guaiFENesin/CODEINE 100MG/10MG 5ML UDC PO PRN ×2 (02:52→09:27)
[2022-09-14 06:58] LABS: Hematocrit (blood only) 31.6 % (34.1-44.9); Hemoglobin 11.5 g/dl (12.0-16.0); Mean Corpuscular Hemoglobin 31.8 pg (25.0-34.0); Mean Corpuscular Hgb Conc 36.4 g/dL (32.0-36.0); Mean Corpuscular Volume 87.3 fL (80.0-100.0); Mean Platelet Volume 10.2 fL (9.4-12.3); Platelet Count 277 K/uL (130-400); RDW Coefficient of Variation 12.6 % (11.5-14.5); RDW Standard Deviation 40.6 fL (36.4-46.3); Red Blood Count 3.62 M/uL (3.93-5.22); White Blood Count 7.84 K/ul (4.8-10.8)
[2022-09-14 07:29] LABS: BUN Creatinine Ratio 7.6 (10-20); Calcium 8.6 mg/dl (8.5-10.1); Creatinine Clr Calc Pharmacy 79.6 ml/min; Est GFR (African American) 107.4 ml/min; Est GFR (Non-African American) 92.7 ml/min; Magnesium 2.1 mg/dl (1.7-2.4); Phosphorus 4.1 mg/dl (2.5-4.9); Potassium 4.1 mmol/L (3.5-5.1)
[2022-09-14] MEDS: ATENOLOL 50 MG TABLET PO SCH (07:51)
[2022-09-14] MEDS: guaiFENesin 600 MG TABCR PO SCH (07:51)
[2022-09-14] MEDS: CHOLECALCIFEROL 1,000 UNITS 25 MCG TAB PO SCH (07:51)
[2022-09-14] MEDS: ENOXAPARIN INJ 40 MG/0.4 ML SYR SQ SCH (07:52)
--- NOTE | 2022-09-14 10:13 | Hospitalist Progress Note ---
Date of Service September 14, 2022 Assessment & Plan (1) Pneumonia: (2) Cough: Plan: Presented on admission with persistent cough CT chest showed airspace consolidation in the lingula, as well as mild patchy airspace opacities in the upper lobes and left lower lobe. A 13 mm groundglass opacity in the left upper lobe may be inflammatory. On admission she was tested negative for COVID-19, influenza type A and B and RSV. Currently on IV antibiotic with ceftriaxone and azithromycin Blood cx - negative in 48 hours Continue nebulizer treatment and guaifenesin Incentive spirometry and flutter valve Patient will need follow-up CT chest in 3 to 4 months for resolution and to exclude underlying pulmonary lesion Continue monitor closely Will Dc on PO Abx, guaifenesin, albuterol inh . Hyponatremia. Possible related to pulm/ oral intake due to acute illness Sodium on admission 120, ->sodium level 131 Sodium was overcorrected, Now on D5 water Current Na 131 Nephrology following DC FR 1.8L Tobacco abuse Counseling on smoking cessation Hypertension BP stable Continue atenolol. History of paroxysmal atrial tachycardia Continue atenolol p.r.n. Hyperlipidemia Continue statin. DVT prophylaxis:On Lovenox. CODE : FULL CODE Admission and Anticipated Discharge Date Admission Date: September 11, 2022 Subjective Patient was seen and evaluated for follow-up persistent cough Sitting in bed with no acute distress with at bedside Patient said that she continues to cough but feels much improved Denies any chest pain, palpitation, dizziness, fever Review of Systems Review of Systems: All systems reviewed & are unremarkable except as noted in Subjective Physical Exam Physical Exam: General- No acute distress Head- atraumatic Eyes- PERRL, EOMI, ENT- oropharynx clear Neck- supple, no JVD Lungs- No wheezing, fairly CTAB, no significant rhonchi or crackles noted Heart- regular rhythm; no murmur Abdomen- normal bowel sounds, soft, nontender Extremities- no calf tenderness,moves extremities Neuro- alert, oriented x 3; PERRL, EOMI; no facial palsy; no dysarthria, ambulates w/o difficulty Skin- warm & dry Results & Data Results & Data ([facility]) Vital Signs (Past 12 Hours) Vital Signs Temp Pulse Pulse Pulse Resp BP Pulse Ox 09/14/22 08:09 36.7 C 55 L 20 139/80 99 09/14/22 07:44 60 09/14/22 07:29 80 16 96 09/14/22 04:00 36.6 C 66 18 120/73 93 09/14/22 00:00 36.7 C 69 18 136/78 92 09/14/22 01:00 64 18 94 O2 Del Method 09/14/22 08:09 Room Air 09/14/22 07:44 09/14/22 07:29 Room Air 09/14/22 04:00 Room Air 09/14/22 00:00 Room Air 09/14/22 01:00 Room Air Laboratory Results 09/14/22 09/14/22 09/13/22 Range/Units 06:41 06:41 09:25 WBC 7.84 (4.8-10.8) K/ul RBC 3.62 L (3.93-5.22) M/uL Hgb 11.5 L (12.0-16.0) g/dl Hct 31.6 L (34.1-44.9) % MCV 87.3 (80.0-100.0) fL MCH 31.8 (25.0-34.0) pg MCHC 36.4 H (32.0-36.0) g/dL RDW Std Deviation 40.6 (36.4-46.3) fL RDW Coeff of Erika 12.6 (11.5-14.5) % Plt Count 277 (130-400) K/uL MPV 10.2 (9.4-12.3) fL Sodium 131 L 128 L (136-145) mmol/L Potassium 4.1 4.0 (3.5-5.1) mmol/L Chloride 96 L 95 L (98-107) mmol/L Carbon Dioxide 28 27 (21-32) mmol/L Anion Gap 7 6 (3-11) BUN 5 L 4 L (6-23) mg/dl Creatinine 0.66 0.62 (0.6-1.2) mg/dl Est Cr Clr Drug Dosing 79.6 84.7 ml/min Est GFR ( Amer) 107.4 109.7 ml/min Est GFR (Non-Af Amer) 92.7 94.6 ml/min BUN/Creatinine Ratio 7.6 L 6.5 L (10-20) Glucose 119 H 121 H (70-99(Fasting)) mg/dl Calcium 8.6 8.9 (8.5-10.1) mg/dl Phosphorus 4.1 3.7 (2.5-4.9) mg/dl Magnesium 2.1 2.0 (1.7-2.4) mg/dl Medications Administered Current Inpatient Medications Acetaminophen (Acetaminophen 325 Mg Tab) 650 mg PO Q4H PRN PRN Reason: Pain or Fever Stop: 10/12/22 00:31 Atenolol (Atenolol 50 Mg Tablet) 50 mg PO DAILY PRN PRN Reason: Palpitations Stop: 10/12/22 00:31 Atenolol (Atenolol 50 Mg Tablet) 50 mg PO DAILY [facility] Stop: 10/12/22 08:59 Last Admin: 09/14/22 07:51 Dose: 50 mg Atorvastatin Calcium (Atorvastatin 10 Mg Tab) 10 mg PO HS [facility] Stop: 10/12/22 20:59 Last Admin: 09/13/22 21:00 Dose: 10 mg Azithromycin (Azithromycin 250 Mg Tab) 250 mg PO DAILY@2200 [facility] Stop: 09/19/22 21:59 Last Admin: 09/13/22 21:00 Dose: 250 mg Enoxaparin Sodium (Enoxaparin Inj 40 Mg/0.4 Ml Syr) 40 mg SQ Q24H [facility] Stop: 10/12/22 08:59 Last Admin: 09/14/22 07:52 Dose: Not Given Guaifenesin (Guaifenesin 600 Mg Tabcr) 600 mg PO Q12 [facility] Stop: 10/13/22 09:14 Last Admin: 09/14/22 07:51 Dose: 600 mg Guaifenesin/Codeine Phosphate (Guaifenesin/Codeine 100mg/10mg 5ml Udc) 5 ml PO Q6H PRN PRN Reason: Cough Stop: 10/11/22 22:10 Last Admin: 09/14/22 09:27 Dose: 5 ml Ceftriaxone Sodium 2,000 mg/ (Dextrose) 70 mls @ 100 mls/hr IV Q24H [facility]; Protocol Stop: 09/19/22 20:59 Last Infusion: 09/13/22 21:45 Dose: Infused Ipratropium [place] (Ipratropium [place] Neb Soln 0.02% 2.5 Ml Vial) 0.5 mg INH Q6R [facility] Stop: 10/12/22 00:59 Last Admin: 09/14/22 07:28 Dose: 0.5 mg Levalbuterol HCl (Levalbuterol 1.25mg/0.5ml Neb) 1.25 mg INH Q6R [facility] Stop: 10/12/22 00:59 Last Admin: 09/14/22 07:29 Dose: 1.25 mg Nitroglycerin (Nitroglycerin Sl 0.4 Mg/Tab Tab) 0.4 mg SL UD PRN PRN Reason: Chest Pain Stop: 10/12/22 00:31 Phenol (Chloraseptic 1.4% Soln 180 Ml Btl) 1 sprays MT Q4H PRN PRN Reason: Sore Throat Stop: 10/12/22 04:25 Last Admin: 09/12/22 05:14 Dose: 1 sprays Vitamin D (Cholecalciferol 1,000 Units 25 Mcg Tab) 4,000 units PO DAILY [facility] Stop: 10/12/22 08:59 Last Admin: 09/14/22 07:51 Dose: 4,000 units (1) Cough Cough type: subacute Qualified Code(s): R05.2 - Subacute cough (2) Pneumonia Laterality: left Lung location: lower lobe of lung Pneumonia type: due to unspecified organism Qualified Code(s): J18.9 - Pneumonia, unspecified organism
--- NOTE | 2022-09-14 11:51 | Discharge Summary ---
Date of Service September 14, 2022 Admission HPI Per Admitting Provider A 67-year-old female with past medical history significant for hyperlipidemia, hypertension, paroxysmal atrial tachycardia, vitamin D deficiency, chronic back pain, history of ongoing tobacco abuse, smokes one-half pack a day, comes with a persistent cough. She says this has been going on for last 10-12 days. She is coughing a lot, disturbing her sleep and sometimes gasping for breath, which prompted her to come to the ER. Denies any fever or chills. Appetite is down, but she is drinking fluids okay..Having also four to five episodes of diarrhea daily. Denies any blood in stools or black stools. Normal bladder movements. No burning micturition. No abdominal pain. No swelling in the legs, no rash. Chest pain from coughing. She is feeling short of breath when she is coughing a lot and sore throat from cough and some upper back pain from the cough. Denies any headache. No blurred visions. Some mild runny nose. Has complaints of some mild right earache. Currently, resting comfortably and hemodynamically stable. Admission Exam Per Admitting Provider GENERAL: The patient is of moderate build, not in acute distress. VITAL SIGNS: Temperature 36.6, pulse 77, respiratory rate 16, blood pressure 170/84, oxygen 95% on room air. HEENT: Pupils equal, round and reactive to light. Oral mucosa moist. Right ear exam, the right ear has some wax seen, but no erythema or drainage seen. NECK: No JVD or neck masses. CARDIOVASCULAR: S1 and S2 heard. Regular rate and rhythm. No murmur, no gallop. RESPIRATORY SYSTEM: Normal AP diameter. No accessory muscle use. No wheezing, no crackles. ABDOMEN: Soft, bowel sounds present, nontender, no distention. CENTRAL NERVOUS SYSTEM: Alert and oriented. Speech is clear. No facial droop. Insight is okay. Obeys simple commands. Moves extremities. EXTREMITIES: No edema, no erythema. Principal Diagnosis Pneumonia, hyponatremia Discharge Exam General- No acute distress Head- atraumatic Eyes- PERRL, EOMI, ENT- oropharynx clear Neck- supple, no JVD Lungs- No wheezing, fairly CTAB, no significant rhonchi or crackles noted Heart- regular rhythm; no murmur Abdomen- normal bowel sounds, soft, nontender Extremities- no calf tenderness,moves extremities Neuro- alert, oriented x 3; PERRL, EOMI; no facial palsy; no dysarthria, ambulates w/o difficulty Skin- warm & dry Discharge Data Allergies Allergy/AdvReac Type Severity Reaction Status Date / Time Sulfa (Sulfonamide Allergy Intermediate Hives Verified 09/12/22 00:26 Antibiotics) Consultations 09/11/22 21:22 ED Decision to Admit Stat 09/12/22 08:00 Consult Nephrology Routine Ordered Studies 09/11/22 21:59 CT chest diagnostic wo con Urgent FINDINGS: Thyroid: Imaged portions of the thyroid gland are normal in size and attenuation. Thoracic aorta: There is atherosclerotic calcification of the thoracic aorta, which is normal in caliber and demonstrates standard 3-vessel arch anatomy. Heart: The heart is top normal in size and without pericardial effusion. There are coronary artery calcifications. Lungs and pleural spaces: Emphysematous change is observed. The trachea and central airways are clear. No pleural effusion is identified. There is airspace consolidation in the lingula. Mild patchy consolidation is also seen in the upper lobes and the left lower lobe. A 13 mm opacity is seen in the left upper lobe on image #[id number]. A low suspicion 6 mm pleural-based nodule in the right middle lobe along the minor fissure is seen on image 66. Mediastinum: Prominent mediastinal lymph nodes measure up to 10 mm in short axis. Alfreda: Not well assessed without IV contrast. Axillae: There is no axillary lymphadenopathy. Upper abdomen: There is a small hiatal hernia. Partially visualized upper abdominal viscera is otherwise within normal limits. Skeletal structures: The skeletal structures are osteopenic. Degenerative change is noted in the thoracic spine. No lytic or blastic bony lesions are seen. IMPRESSION: 1. There is airspace consolidation in the lingula, as well as mild patchy airspace opacities in the upper lobes and left lower lobe. The appearance is typical for pneumonia and clinical correlation will be required. 2. Emphysema. 3. A 13 mm groundglass opacity in the left upper lobe may be inflammatory. A 3-4 month follow-up chest CT is recommended to document complete resolution and to exclude underlying pulmonary lesion. 4. Prominent mediastinal lymph nodes are likely reactive. 5. Additional findings as above. Hospital Course (1) Pneumonia: (2) Cough: Presented on admission with persistent cough CT chest showed airspace consolidation in the lingula, as well as mild patchy airspace opacities in the upper lobes and left lower lobe. A 13 mm groundglass opacity in the left upper lobe may be inflammatory. On admission she was tested negative for COVID-19, influenza type A and B and RSV. Currently on IV antibiotic with ceftriaxone and azithromycin Blood cx - negative in 48 hours Continue nebulizer treatment and guaifenesin Incentive spirometry and flutter valve Patient will need follow-up CT chest in 3 to 4 months for resolution and to exclude underlying pulmonary lesion Continue monitor closely Will Dc on PO Abx, guaifenesin, albuterol inh . Hyponatremia. Possible related to pulm/ oral intake due to acute illness Sodium on admission 120, ->sodium level 131 Sodium was overcorrected, Now on D5 water Current Na 131 Nephrology following DC FR 1.8L Tobacco abuse Counseling on smoking cessation Hypertension BP stable Continue atenolol. History of paroxysmal atrial tachycardia Continue atenolol p.r.n. Hyperlipidemia Continue statin. Total Time Total Time Spent Total Time Spent (In Minutes): 40 Discharge Plan Discharge Items Patient Disposition: Home - Self-Care Reason For Visit: COUGH Discharge Diagnosis: Pneumonia, hyponatremia Activity: Per Instructions section Non-emergency contact: Primary Care Provider Call non-emergency contact if: you have any medication questions and your symptoms worsen Follow-up/Referrals: Srinivasa Germain MD [Primary Care Provider] - (Date & Time 09/20/2022 1:00 PM Provider Srinivasa Germain MD Department Family Medicine [facility] ) Diet: Regular Fluids: 1800ml (7 cups) Addtl Attending Provider Instructions: Follow-up with primary care doctor within 1 to 2 weeks. The appointment was scheduled for you for September 20. Please reschedule if this date does not work for you. Finish antibiotic treatment as prescribed. Continue guaifenesin, albuterol inhaler, and continue to use flutter valve and incentive spirometer. Pending Studies at Discharge: No Stand-Alone Forms: [facility], Smoking Cessation Medications and DC Order Prescriptions: New cefuroxime axetil 500 mg tablet 500 mg PO BID 5 Days Qty: 10 0RF azithromycin 250 mg tablet 250 mg PO DAILY 4 Days Qty: 4 0RF guaifenesin 600 mg tablet extended release 12hr 600 mg PO BID 7 Days Qty: 14 0RF albuterol sulfate 90 mcg/actuation HFA aerosol inhaler 1 inh inhalation Q6H PRN (Reason: shortness of breath or wheezing) Qty: 6.7 0RF Continued atenolol 50 mg Tablet 50 mg PO QAM atenolol 50 mg Tablet 50 mg PO DAILY PRN (Reason: HEART FLUTTERING) cholecalciferol (vitamin D3) [Vitamin D3] 2,000 unit Tablet 4,000 unit PO QAM atorvastatin 10 mg tablet 10 mg PO QAM Discharge Orders: Discharge Order (Routine); Ordered 09/14/22 Ordered By: Mj Pickering Admission Data Admit Date/Time: 09/11/22 21:59 Attending Provider: Mj Pickering Admit Provider: Simone May Primary Care Provider: Srinivasa Germain Other Providers: Simone May ; Marta Raymond
== END 2022-09-14 13:25 | disposition home or self-care (01) | DRG 640 ==
LOC: ED 18:47 → SUATTDRO 21:59 → EDINP 21:59 → 2W 09-12 17:28